=== PATIENT | female | born 1980 | race Two or more races ===

== ENCOUNTER 2017-06-18 08:40 | Emergency (ER) | payer OTHER ==
[~2017-06-18] VITALS: Ht 157.5 cm; Wt 55.8 kg
--- NOTE | ~2017-06-18 | CR63 ---
[facility] A Service of [facility] & [facility] RADIOLOGY TEXT RESULTS PATIENT: DOUGLAS ESPITIA LOCATION: [facility] : 76 UNIT #: [id number] AGE: [address]: Hawa Blunt SEX: F ORDER DR: [id number] [facility] [address] [place], [place] [address] [id number] MR#: [id number] Acc #: [id number] NAME: DOUGLAS ESPITIA : 1980 SEX: F STUDY DATE/TIME: 06/18/2017 11:54 UNIT: [facility] ROOM: STUDY DESCRIPTION: CR Chest 2 View Attending Physician: Hawa lBunt Pa-C Ordering Physician: Hawa Blunt Pa-C Primary Care Physician: Primary Care Physician No MEDICAL IMAGING REPORT This report is preliminary unless electronic signature is present EXAM Chest 2 views 06/18/2017 1154 hours HISTORY 37-year-old woman with cough for 2 weeks. Midsternal chest pain today. COMPARISON 12/22/2016. FINDINGS Upright PA and lateral views of the chest demonstrate normal cardiac, mediastinal and hilar contours. The lungs are well expanded and clear. There is no effusion or pneumothorax. IMPRESSION Normal two-view chest exam. Dictated by... Prabha Erickson M.D. THIS IS AN ELECTRONICALLY VERIFIED REPORT Prabha Erickson M.D. at 06/18/2017 2:32 PM FRANCES/dang TD: 06/18/2017 14:01 JOB #: [id number] MEDICAL IMAGING REPORT Page 1 of 1 COPY
--- NOTE | ~2017-06-18 | EKG ---
PATIENT: DOUGLAS ESPITIA UNIT #: [id number] Ventricular Rate: 113 BPM Atrial Rate: 113 BPM P-R Interval: 146 ms QRS Duration: 86 ms Q-T Interval: 328 ms QTC Calculation(Bezet): 449 ms P Gaines: 39 degrees Calculated R Gaines: -8 degrees Calculated T Gaines: 25 degrees Diagnosis Line: Sinus tachycardia Diagnosis Line: Otherwise normal ECG Diagnosis Line: When compared with ECG of 22-DEC-2016 12:33, Diagnosis Line: No significant change was found Diagnosis Line: Confirmed by TINY LYNN MD ([id number]) on Diagnosis Line: 06/18/2017 12:01:38 PM INTERPRETING MD: LEAH SPAIN
[2017-06-18 09:21] LABS: POC - CKMB <1.0 ng/mL (0.0-7.9); POC - TROPONIN <0.05 ng/mL (<=0.05)
[2017-06-18 10:03] LABS: BASOPHIL% 0.5 % (0-2.5); EOSINOPHIL# 0.2 X10e3 (0-0.7); EOSINOPHIL% 1.8 % (0.0-7.0); HEMATOCRIT 40.4 % (35.0-45.0); HEMOGLOBIN 13.6 gm/dL (12.0-16.0); LYMPHOCYTE# 2.9 X10e3 (1.0-3.5); LYMPHOCYTE% 32.1 % (17.0-45.0); MEAN CELL VOLUME 89.2 FL (83-96); MEAN CORPUSCULAR HGB CONC 33.7 g/dL (30-36); MEAN PLATELET VOLUME 10.2 FL (6.5-11.5); MONOCYTE# 0.6 X10e3 (0-1.0); MONOCYTE% 7.1 % (3.0-12.0); NEUTROPHIL# 5.3 X10e3 (1.5-7.1); NEUTROPHIL% 58.5 % (40-75); PLATELET COUNT 270 X10e3 (140-420); RED BLOOD COUNT 4.53 X10e (3.90-5.30); WHITE BLOOD COUNT 9.1 X10e3 (4.0-10.5)
[2017-06-18 10:10] LABS: DIFF IND NO
[2017-06-18 10:22] LABS: ALBUMIN SERUM 4.1 g/dL (3.5-5.0); BILIRUBIN,TOTAL 1.4 mg/dL (0.2-2.0); CALCIUM SERUM 9.1 mg/dL (8.4-10.2); CREATININE SERUM 0.5 mg/dL (0.6-1.4); GLOM FILT RATE Estimated 121.9 mL/min (>60); POTASSIUM 3.5 mmol/L (3.5-5.1); PROTEIN TOTAL SERUM 7.9 g/dL (6.0-8.3)
== END 2017-06-18 13:05 | disposition home or self-care (01) ==
LOC: CED 08:40
PROVIDERS: Physician Assistant Medical
DX: R07.89 Other chest pain (principal); E11.9 Type 2 diabetes mellitus without complications
CPT/HCPCS: 36415; 71020; 80053; 82553; 84484; 85025; 85379; 93005; 96374; 96375; 99285; C9113; J1885